=== PATIENT | male | born 1980 | race Caucasian/White ===

== ENCOUNTER 2016-10-15 11:44 | Emergency (ER) | payer BC ==
[~2016-10-15] VITALS: Ht 175.3 cm; Wt 79.0 kg
[2016-10-15 11:49] VITALS: BP 132/88; PULSE 77; RESP 16; TEMP 98.1; O2SAT 99
[2016-10-15] MEDS ORDERED: SODIUM CHLOR 0.9% 1000 ML INJ 1,000 ML IV ONE (11:53)
[2016-10-15] MEDS ORDERED: SUBO8MIS SL (11:57)
[2016-10-15] MEDS ORDERED: ACETAMINOPHEN 325 MG TAB PO ONE (12:00)
[2016-10-15] MEDS ORDERED: SODIUM CHLORIDE 0.9% FLUSH 5 ML FLUSH IVF PRN (12:00)
[2016-10-15 12:01] VITALS: O2SAT 98
[2016-10-15 12:17] LABS: AUTOMATED NEUTROPHIL # 2.9 TH/MM3 (1.8-7.7); BASOPHIL % 0.8 % (0.0-2.0); EOSINOPHIL # 0.2 TH/MM3 (0-0.4); EOSINOPHIL % 2.7 % (0.0-4.0); HEMATOCRIT 41.4 % (39.0-51.0); HEMO FLAGS DIFF FINAL; LYMPH % 34.8 % (9.0-44.0); MEAN CELL VOLUME 88.3 FL (80.0-100.0); MONO % 12.2 % (0.0-8.0); NEUT % 49.5 % (16.0-70.0); PLATELET COUNT 231 TH/MM3 (150-450); RED BLOOD COUNT 4.69 MIL/MM3 (4.50-5.90); RED CELL DISTRIBUTION WIDTH 11.6 % (11.6-17.2); WHITE BLOOD COUNT 5.8 TH/MM3 (4.0-11.0)
[2016-10-15 12:23] LABS: CHLORIDE 102 MEQ/L (98-107); POTASSIUM 4.2 MEQ/L (3.5-5.1); SODIUM (NA) 141 MEQ/L (136-145)
[2016-10-15 12:28] LABS: ANION GAP 9 MEQ/L (5-15); BICARBONATE 29.9 MEQ/L (21.0-32.0); BLOOD UREA NITROGEN 13 MG/DL (7-18)
[2016-10-15 12:31] LABS: AST (GOT) 23 U/L (15-37); GLOMERULAR FILTRATION RATE 106 ML/MIN (>89)
[2016-10-15 12:32] LABS: TOTAL BILIRUBIN ADULT 0.8 MG/DL (0.2-1.0)
[2016-10-15 12:34] LABS: ALKALINE PHOSPHATASE 81 U/L (45-117); CREATINE KINASE 111 U/L (39-308)
[2016-10-15 12:35] LABS: ALT (GPT) 43 U/L (12-78)
[2016-10-15 13:19] VITALS: BP 123/65; PULSE 64; RESP 18; O2SAT 98
--- NOTE | 2016-10-15 14:02 | PD ---
HPI Chief Complaint: Headache Time Seen by Provider: 12:32 Travel History International Travel<30 days: No Contact w/Intl Traveler<30days: No Traveled to known affect area: No History of Present Illness HPI 36-year-old male with history of heat exhaustion diagnosed last year and electrolyte abnormalities diagnosed last year, presents to the ER today because he states that he has had several days' history of body cramping, fatigue, nausea, vomiting 1, headaches. He states that he has similar symptoms when he had his electrolyte abnormalities last time. He has been working out the son but denies that it is significantly hot than usual. He does not know nail any sick contacts. He denies any photophobia, neck pain, fevers, abdominal pains, or any other symptoms. 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 SKIN: Warm and dry. HEAD: Normocephalic. ENT: Mucosa pink and moist. No erythema or exudates. No uvular edema. No uvular , palatal, or tonsillar deviation. Airway patent. EYES: No scleral icterus. No injection or drainage. NECK: Supple, trachea midline. CARDIOVASCULAR: Regular rate and rhythm without murmurs, gallops, or rubs. RESPIRATORY: Breath sounds equal bilaterally. No accessory muscle use. GASTROINTESTINAL: Abdomen soft, non-tender, nondistended. Benign. MUSCULOSKELETAL: No cyanosis, or edema. BACK: Nontender without obvious deformity. No CVA tenderness. Data Data Last Documented VS Vital Signs Date Time Temp Pulse Resp B/P Pulse Ox O2 Delivery O2 Flow Rate FiO2 10/15/16 13:19 64 18 123/65 98 Room Air 10/15/16 11:49 98.1 Orders Complete Blood Count With Diff (10/15/16 11:53) Comprehensive Metabolic Panel (10/15/16 11:53) Ecg Monitoring (10/15/16 11:53) Iv Access Insert/Monitor (10/15/16 11:53) Oximetry (10/15/16 11:53) Sodium Chloride 0.9% Flush (Ns Flush) (10/15/16 12:00) Acetaminophen (Tylenol) (10/15/16 12:00) Sodium Chlor 0.9% 1000 Ml Inj (Ns 1000 M (10/15/16 11:53) Creatine Kinase (Cpk) (10/15/16 11:53) Influenzae A/B Antigen (10/15/16 11:53) Labs Laboratory Tests Test 10/15/16 12:10 White Blood Count 5.8 TH/MM3 Red Blood Count 4.69 MIL/MM3 Hemoglobin 14.1 GM/DL Hematocrit 41.4 % Mean Corpuscular Volume 88.3 FL Mean Corpuscular Hemoglobin 30.0 PG Mean Corpuscular Hemoglobin 34.0 % Concent Red Cell Distribution Width 11.6 % Platelet Count 231 TH/MM3 Mean Platelet Volume 7.3 FL Neutrophils (%) (Auto) 49.5 % Lymphocytes (%) (Auto) 34.8 % Monocytes (%) (Auto) 12.2 % Eosinophils (%) (Auto) 2.7 % Basophils (%) (Auto) 0.8 % Neutrophils # (Auto) 2.9 TH/MM3 Lymphocytes # (Auto) 2.0 TH/MM3 Monocytes # (Auto) 0.7 TH/MM3 Eosinophils # (Auto) 0.2 TH/MM3 Basophils # (Auto) 0.0 TH/MM3 CBC Comment DIFF FINAL Differential Comment Sodium Level 141 MEQ/L Potassium Level 4.2 MEQ/L Chloride Level 102 MEQ/L Carbon Dioxide Level 29.9 MEQ/L Anion Gap 9 MEQ/L Blood Urea Nitrogen 13 MG/DL Creatinine 0.82 MG/DL Estimat Glomerular Filtration 106 ML/MIN Rate Random Glucose 108 MG/DL Calcium Level 8.7 MG/DL Total Bilirubin 0.8 MG/DL Aspartate Amino Transf 23 U/L (AST/SGOT) Alanine Aminotransferase 43 U/L (ALT/SGPT) Alkaline Phosphatase 81 U/L Total Creatine Kinase 111 U/L Total Protein 7.7 GM/DL Albumin 4.0 GM/DL MDM Medical Decision Making Medical Screen Exam Complete: Yes Emergency Medical Condition: Yes Medical Record Reviewed: Yes Interpretation(s) Laboratory Tests Test 10/15/16 12:10 Monocytes (%) (Auto) 12.2 % (0.0-8.0) Random Glucose 108 MG/DL (74-106) Differential Diagnosis Fatigue, nausea, vomiting, headaches, body achesinfluenza versus viral syndrome versus dehydration versus rhabdomyolysis versus metabolic issues Narrative Course Abdomen is benign and I do not suspect an acute intra-abdominal process. Patient was given IV fluids in the ER. Lab work did not indicate significant metabolic issues or dehydration or electrolyte issues. He has no signs of elevation in CPK and I do not suspect a rhabdomyolysis in this case. Influenza test is negative. In this case, I suspect he may be somewhat dehydrated since on reevaluation at 2 PM, he is feeling much improved with the IV fluids. He may also have some underlying viral syndrome. At this point, I do not suspect other acute issues. He is well-appearing and in the ER and vital signs are stable. My plan would be to release him with follow-up to primary care physician. Return for any worsening in symptoms as necessary. Drink plenty of fluids. The abdomen heat. The plan was discussed with him and he states understanding. Diagnosis Primary Impression: Viral syndrome Disposition: 01 DISCHARGE HOME Condition: Stable Analisa Amos MD Oct 15, 2016 14:02
[2016-10-15 14:51] VITALS: BP 136/78
== END 2016-10-15 14:52 | disposition home or self-care (01) ==
LOC: PHED 11:44
DX: B34.9 Viral infection, unspecified (principal); R11.2 Nausea with vomiting, unspecified; R51 Headache; F17.210 Nicotine dependence, cigarettes, uncomplicated
CPT/HCPCS: 80053; 82550; 85025; 87804; 96360; 99284; J7030